=== PATIENT | female | born 1970 | race Caucasian/White ===

== ENCOUNTER 2020-11-26 15:41 | Observation (INO) | payer MEDICAID, SELFPAY ==
--- NOTE | 2020-11-26 15:42 | PC.NURSE ---
notified specialty clinic staff that pt is here that is supposed to see.
--- NOTE | 2020-11-26 15:52 | PC.NURSE ---
DR BARROSO HERE TO SEE PT
--- NOTE | 2020-11-26 16:04 | PC.NURSE ---
Addendum entered by Kristy Camarena RN 11/26/20 20:33: Dr. Wood stated he would see pt in the hospital on , when he is back in clinic Original Note: Dr. Wood gave orders to this RN, communication order placed. MD ordered: Admit pt (MD Hensley), Clindamycin 300mg IV q6, C&S Cx to nasal cavity wound, Peroxide to base of nares QID and Bacitracin ointment applied QID.
[2020-11-26 16:13] VITALS: BP 130/74; PULSE 105; RESP 16; TEMP 36.6; O2SAT 100; BMI 40.0
[2020-11-26 17:53] LABS: Adenovirus,PCR Not Detected (NotDetected); Bordetella Pertussis Not Detected (NotDetected); Chlamydophila Pneumoniae, PCR Not Detected (NotDetected); Coronavirus 19, PCR Not Detected (NotDetected); Coronavirus 229E Not Detected (NotDetected); Coronavirus NL63 Not Detected (NotDetected); Coronavirus OC43 Not Detected (NotDetected); Coronovirus HKU1,PCR Not Detected (NotDetected); Human Metapneumovirus Not Detected (NotDetected); Influenza A, PCR Not Detected (NotDetected); Influenza AH1, 2009 Not Detected (NotDetected); Influenza AH1, PCR Not Detected (NotDetected); Influenza AH3,PCR Not Detected (NotDetected); Influenza B, PCR Not Detected (NotDetected); Mycoplasma Pneumoniae, PCR Not Detected (NotDetected); Parainfluenza 1, PCR Not Detected (NotDetected); Parainfluenza 2, PCR Not Detected (NotDetected); Parainfluenza 3, PCR Not Detected (NotDetected); Parainfluenza 4, PCR Not Detected (NotDetected); Respiratory Syncytial Virus Not Detected (NotDetected); Rhinovirus/Enterovirus Not Detected (NotDetected)
--- NOTE | 2020-11-26 19:08 | PC.NURSE ---
DR. Hensley called wanting to know what Dr. Wood's poc was for pt, I stated this information to Dr. Hensley, who states is agreeable to admit pt to his service with Dr. Hill is ready to admit pt, he does not need to call him. notified ER MD hill of the above.
--- NOTE | 2020-11-26 19:36 | HMH.EDGENADL ---
ED Disposition Clinical Impression: Facial abscess Disposition: Admitted as Observation Condition on Discharge: Fair Referrals: Dianne Banuelos [Primary Care Provider] - - Critical Care Critical Care Time: No Attestation: On 11/26/20, the high probability of a clinically significant, sudden or life threatening deterioration of the following system(s) required my full and direct attention, intervention and personal management. The time I documented below is in addition to time spent performing reported procedures but includes the following listed in this critical care notation. Medical Decision Making - Bran Inquiry Pt receiving controlled substance: Yes Bran was queried for this patient: Yes Risks and benefits of using a controlled substance: were discussed with pt by me Vital Signs: 11/26/20 16:13 Temperature 97.9 F Temperature Source Tympanic Pulse Rate [Right] 105 H Respiratory Rate 16 Blood Pressure [Right Arm] 130/74 Blood Pressure Mean [Right Arm] 92 Blood Pressure Source [Right Arm] Automatic Cuff Blood Pressure Position [Right Arm] Sitting 02 Sat by Pulse Oximetry 100 Oxygen Delivery Method Room Air - Lab Data Lab Results 11/26/20 16:03: Chlamy pneumoniae PCR Not detected, Adenovirus (PCR) Not detected, B. pertussis DNA (PCR) Not detected, Coronavirus OC43 (PCR) Not detected, Coronavirus HKU1 (PCR) Not detected, Coronavirus 229E (PCR) Not detected, SARS-CoV-2 (PCR) Not detected, Coronavirus NL63 (PCR) Not detected, Human Metapneumovir PCR Not detected, Influenza A (H1) PCR Not detected, Influ A (H1N1/09) PCR Not detected, Influenza A (H3) PCR Not detected, Influenza Type A (PCR) Not detected, Influenza Type B (PCR) Not detected, M. pneumoniae (PCR) Not detected, Parainfluenza 1 (PCR) Not detected, Parainfluenza 2 (PCR) Not detected, Parainfluenza 3 (PCR) Not detected, Parainfluenza 4 (PCR) Not detected, RSV (PCR) Not detected, Entero/Rhino (PCR) Not detected Orders (Tests/Meds): ED MEDICATIONS Discontinued Medications Generic Name Dose Route Start Last Admin Trade Name Freq PRN Reason Stop Dose Admin Clindamycin Phosphate 300 mg/ 102 mls @ 100 mls/hr 11/26/20 18:00 11/26/20 18:01 Sodium Chloride IV 11/26/20 19:02 100 mls/hr ONCE ONE Administration Protocol ORDERS Category Date Time Status Wound Culture and Gram Stain Stat Micro 11/26/20 16:05 Results General Adult HPI - General Chief complaint: Skin/Abscess/Foreign Body Stated complaint: infection nose.Lip Time Seen by Provider: 11/26/20 19:37 Mode of Arrival: Ambulatory Limitations: No Limitations Description of Symptoms (Recalled from ER Triage Doc. by RN): pt was sent here from [facility]. [facility] accepted her as an admission and frankie came down to see her bedside. pt woke up about six days ago and had a small red pimple under her left nostril. in the past few days it has continued to swell and become painful. pt said it burst open today and was draining. her whol upper lip is swollen into her left nostril. there is dried blood covering where the skin had opened up. the tissue is red warm and swollen. - History of Present Illness HPI narrative: He states that on , 5 days ago, she woke up with a pimple on her left upper lip just below her nose. She popped it and cleaned it with alcohol. 2 days later when she woke up her whole lip had swollen up and was painful. She went by ambulance to [facility] last night at 2 AM. She says they told her it was a staph infection and started her on vancomycin. She says they were going to admit her but they did not have an available bed. Apparently a call was placed here to Dr. Hensley and he accepted her as a transfer but wanted her to come to the emergency department and for her to see Dr. Wood in the emergency department. Dr. Wood is seen her prior to my evaluation. He has requested intravenous clindamycin and wound care and
[2020-11-26 20:00] LABS: Basophils % 0.1 % (0.1-2.0); Chloride 102 mmol/L (98-107); Eosinophils % 0.1 % (0.1-12.0); Hematocrit 45.2 % (37.0-47.0); Hemoglobin 14.8 g/dL (12.2-16.2); Lymphocytes # 1.1 K/mm3 (0.7-4.5); Lymphocytes % 7.3 % (10-50); Mean Corpuscular HGB Conc 32.7 g/dL (31.8-35.4); Mean Corpuscular Hemoglobin 30.7 pg (27.0-31.2); Mean Platelet Volume 8.2 fl (7.4-10.4); Monocytes # 0.2 K/mm3 (0.1-1.0); Monocytes % 1.2 % (1.7-9.3); Neutrophils # 13.9 K/mm3 (1.8-7.8); Neutrophils % 91.3 % (37.0-80.0); Platelet Count 588 K/mm3 (142-424); Red Blood Count 4.81 M/mm3 (4.20-5.40); Red Cell Distribution Width 13.3 % (11.5-17.5); White Blood Count 15.3 K/mm3 (4.8-10.8)
[2020-11-26 20:01] LABS: Potassium 3.6 mmoL/L (3.5-5.1); Sodium 140 mmol/L (136-145)
[2020-11-26 20:03] LABS: Blood Urea Nitrogen 12 mg/dl (7-17); Creatinine Clearance Estimated 152 mL/min (50-200); Estimated Glomerular Filt Rate 88 ml/min (>60); GFR (African American) 106 ML/MIN (>60)
[2020-11-26 20:04] LABS: Alanine Aminotransferase 33 U/L (12-78); Albumin Level 4.4 g/dl (3.5-5.0); Albumin/Globulin Ratio 1.3 (1.1-1.8); Alkaline Phosphatase 126 U/L (38-126); Anion Gap 15.6 mEq/L (5-15); Aspartate Amino Transferase 36 U/L (14-36); Bilirubin,Total 0.7 mg/dl (0.2-1.3); Calcium 10.3 mg/dl (8.4-10.2); Carbon Dioxide 26 mmol/L (22.0-30.0); Globulin 3.5 g/dL (1.3-3.2); Glucose 221 mg/dl (74-100); Total Protein,Serum 7.9 g/dl (6.3-8.2)
[2020-11-26 20:05] LABS: Lactic Acid 3.5 mmol/L (0.7-2.1)
[2020-11-26 20:06] LABS: MANUAL DIFFERENTIAL MANUAL DIFFERENTIAL (MANUAL DIFF)
--- NOTE | 2020-11-26 20:08 | PC.NURSE ---
s/w heavenly ivan rn for bed assignment
[2020-11-26 20:30] LABS: Lymphocytes % 6 % (10-50); Monocytes % 2 % (2-9); Neutrophils % 92 % (42-76); Platelet Estimate Slight Increase; RBC Morphology Normal; Total Cells Counted 100
[2020-11-26 20:53] VITALS: BP 118/72; PULSE 83; RESP 16; TEMP 36.6; O2SAT 97; BMI 43.0
[2020-11-26 20:53] LABS: Reflex Lactic Add Lactic Reflex
--- NOTE | 2020-11-26 20:54 | PC.NURSE ---
PT ARRIVED TO FLOOR VIA W/C FROM ED W/STAFF AT 2052
[2020-11-26 20:55] VITALS: BP 135/79; PULSE 99; RESP 18; TEMP 36.8; O2SAT 97
[2020-11-26 21:22] LABS: Lactic Acid Follow Up (RFLX 1) 3.3 mmol/L (0.7-2.1)
[2020-11-26 22:55] LABS: Reflex Lactic (2 hrs) Add Lactic Reflex
[2020-11-26 23:33] LABS: Lactic Acid Follow up (RFLX 2) 2.4 mmol/L (0.7-2.1)
--- NOTE | 2020-11-27 02:49 | PC.WOUNDNOTE ---
Wound Location: Length: Width: Depth: Undermining Y/N: Tunneling cm: Granulation %: Slough/necrotic tissue %: Inflammation/swelling Y/N: Pain and/or tenderness Y/N: Exudate: Serosanguinous Sanguinous Serosanguinous Seropurulent Purulent Color: Clear [place] Cloudy/milky [place] Red Green Yellow Brown [place] Blue Consistency: Thick Thin Amount: None Scant Small Moderate Large Odor Y/N:
--- NOTE | 2020-11-27 02:49 | PC.WOUNDNOTE ---
Wound Location: under nose Length: 3.5 cm Width:2 cm Depth: Undermining Y/N: Tunneling cm: Granulation %: Slough/necrotic tissue %: Inflammation/swelling Y/N:Y Pain and/or tenderness Y/N: Y Exudate: Serosanguinous Sanguinous Serosanguinous Seropurulent Purulent Color: Clear Cynthia Cloudy/milky [place] Red Green Yellow Brown [place] Blue Consistency: Thick Thin Amount: None Y Scant Small Moderate Large Odor Y/N: N
[2020-11-27 04:00] VITALS: BP 140/65; PULSE 71; RESP 16; TEMP 36.6; O2SAT 96
--- NOTE | 2020-11-27 05:06 | PC.NURSE ---
pt is AxOx4, has rested well t/o shift, no complaints of pain in the facial abscess, does state that the place on her face itches, no complaints of chest pain or SOA, remains on room air, some expiratory wheezing noted on auscultation of lungs, O2 sats 97-100%
--- NOTE | 2020-11-27 07:35 | HMH.PHAVTE ---
[facility] Pharmacy VTE Monitoring - Patient Demographics Admission date: 11/27/20 Report Date: 11/27/20 Time: 07:35 Allergies/Adverse Reactions: Patient Allergies No Known Allergies Allergy (Verified 11/26/20 16:25) Height: 1.57 m Weight: 106.594 kg Patient Problems: Current Active Problems Facial abscess (Acute) - VTE Risk Labs: VTE Related Lab Results Hgb 14.8 g/dL (12.2-16.2) 11/26/20 15:59 Hct 45.2 % (37.0-47.0) 11/26/20 15:59 Plt Count 588 K/mm3 (142-424) H 11/26/20 15:59 BUN 12 mg/dl (7-17) 11/26/20 15:59 Creatinine 0.70 mg/dl (0.52-1.04) 11/26/20 15:59 Estimated Creat Clear 152 mL/min (50-200) 11/26/20 15:59 Was VTE Risk Assessment Performed: Yes VTE Score: 3 VTE Risk Level: Low Risk Clinical Trial Participant: No - Prophylaxis VTE Prophylaxis Ordered?: Yes Types of VTE Prophylaxis: TEDS Knee High Location of Applied Device: Bilateral Lower Extremeties
--- NOTE | 2020-11-27 07:48 | HMH.PHAINT ---
CLARIFIED HOME MEDICATION LIST USING LIST FROM OUTPATIENT PHARMACY
[2020-11-27 08:00] VITALS: BP 130/73; PULSE 90; RESP 20; TEMP 36.3; O2SAT 98
--- NOTE | 2020-11-27 08:20 | HMH.HP ---
*Admission Date: 11/27/20 *Chief complaint: Facial cellulitis/abscess *History of present illness: 50-year-old white female with history of tobacco use disorder, COPD, hypertension and obesity who presented to the emergency department in [place] with facial swelling and cellulitis at the left upper lip at the base of the left nares. She was diagnosed with abscess apparently based on CT scan and it was recommended that she have ENT follow her but there were no ENT services available at the [facility] either in [facility] or in [facility], and we were contacted to accept patient in transfer for IV antibiotics and to see our ENT consultation here. This was done and she was admitted through the emergency department. [facility] History I have reviewed the patient's past medical history: Yes Medical History: Reports:: Anxiety, Chronic Obstructive Pulmonary Disease (COPD), Diabetes Mellitus Type 2, Hypertension Denies:: Diabetes Mellitus Type 1 *Have you ever received a pneumonia vaccine?: No *Have you received a flu vaccine this season?: No - *Social History Smoking Status: Current every day smoker Tobacco Type: cigarettes # Packs/Day (cigarettes): 1 Alcohol Intake: never *Occupational Status:: disabled *Travel in the last 8 weeks: None Family Hx:: No significant family history Review of Systems - Review of Systems Review of systems:: pertinent systems reviewed and negative unless documented below Low-grade fevers. No nausea, vomiting or other GI issues. No cardiopulmonary issues. No other areas of swelling or abscess formation. Meds Home Medications Medication Instructions Recorded Confirmed Type Amlodipine Besylate 10 mg PO DAILY 11/26/20 11/26/20 History Baclofen [Lioresal 10mg tablet] 10 mg PO DAILY 11/26/20 11/26/20 History Duloxetine HCl [Cymbalta 30mg 30 mg PO DAILY 11/26/20 11/26/20 History capsule] Fluticasone Propionate [Flonase 1 spr NS DAILY 11/26/20 11/26/20 History 50mcg nasal spray 16gm] Oxybutynin Chloride 5 mg PO BID 11/26/20 11/27/20 History Pantoprazole Sodium 40 mg PO DAILY 11/26/20 11/26/20 History hydrOXYzine HCL [Hydroxyzine HCl] 25 mg PO BIDP PRN 11/26/20 11/27/20 History Losartan/Hydrochlorothiazide 1 tab PO DAILY 11/27/20 11/27/20 History [Losartan-Hctz 100-25 mg Tab] PARoxetine HCL [Paxil 20mg Tablet] 20 mg PO DAILY 11/27/20 11/27/20 History Allergies Allergy/AdvReac Type Severity Reaction Status Date / Time No Known Allergies Allergy Verified 11/26/20 16:25 Exam Vital signs and Labs for Last 24 Hours: Temp Pulse Resp BP Pulse Ox 97.4 F L 90 20 130/73 98 11/27/20 08:00 11/27/20 08:00 11/27/20 08:00 11/27/20 08:00 11/27/20 08:00 Laboratory Results - last 24 hr 11/26/20 15:59: WBC 15.3 H, RBC 4.81, Hgb 14.8, Hct 45.2, MCV 94.0, MCH 30.7, MCHC 32.7, RDW 13.3, Plt Count 588 H, MPV 8.2, Neut % (Auto) 91.3 H, Lymph % (Auto) 7.3 L, [place] % (Auto) 1.2 L, Eos % (Auto) 0.1, Baso % (Auto) 0.1, Neut # (Auto) 13.9 H, Lymph # (Auto) 1.1, [place] # (Auto) 0.2, Eos # (Auto) 0.0, Baso # (Auto) 0.0, Total Counted 100, Neutrophils % (Manual) 92 H, Lymphocytes % (Manual) 6 L, Monocytes % (Manual) 2, Platelet Estimate Slight increase, RBC Morphology Normal 11/26/20 15:59: Sodium 140, Potassium 3.6, Chloride 102, Carbon Dioxide 26, Anion Gap 15.6 H, BUN 12, Creatinine 0.70, Estimated Creat Clear 152, Estimated GFR 88, Est GFR ( Amer) 106, Glucose 221 H, Calcium 10.3 H, Total Bilirubin 0.7, AST 36, ALT 33, Alkaline Phosphatase 126, Total Protein 7.9, Albumin 4.4, Globulin 3.5 H, Albumin/Globulin Ratio 1.3 11/26/20 15:59: Lactate 3.5 H 11/26/20 16:03: Chlamy pneumoniae PCR Not detected, Adenovirus (PCR) Not detected, B. pertussis DNA (PCR) Not detected, Coronavirus OC43 (PCR) Not detected, Coronavirus HKU1 (PCR) Not detected, Coronavirus 229E (PCR) Not detected, SARS-CoV-2 (PCR) Not detected, Coronavirus NL63 (PCR) Not detected, Human Metapneumovir PCR Not de
--- NOTE | 2020-11-27 12:50 | PC.NURSE ---
Pt is alert and oriented X 4. Lungs are clear, bowel sounds active x4. Yellowish/bloody crusting to left upper lip, into left nare. Washed with peroxide q6hrs and bacitracin applied q4hrs. Pt has tolerated treatments well. She rested in bed until lunch time then she was up the chair for a while. She ambulates in the room independently. She requested pain meds once thus far for facial pain. She was resting with her eyes closed on reassessment. Nicotine patch applied to left deltoid. No complaints verbalized (other than facial pain). Will continue to monitor.
[2020-11-27 14:01] VITALS: BMI 43.4
[2020-11-27 15:41] VITALS: BP 98/54; PULSE 75; RESP 18; TEMP 36.9; O2SAT 98
[2020-11-27 20:00] VITALS: BP 110/55; PULSE 76; RESP 16; TEMP 37; O2SAT 99
[2020-11-28 03:49] VITALS: BP 123/67; PULSE 69; RESP 16; TEMP 36.5; O2SAT 97
--- NOTE | 2020-11-28 04:20 | PC.NURSE ---
Pt admitted for excoriations between nares and mouth, documented infection present. Pt currently on ABx and has not c/o pain this shift. Plan for surgical intervention for infection today. Will continue to monitor for any acute changes.
[2020-11-28 05:00] VITALS: BMI 43.7
[2020-11-28 06:45] LABS: Basophils % 0.3 % (0.1-2.0); Eosinophils % 0.3 % (0.1-12.0); Hematocrit 38.8 % (37.0-47.0); Lymphocytes # 4.5 K/mm3 (0.7-4.5); Lymphocytes % 39.8 % (10-50); Mean Corpuscular HGB Conc 33.6 g/dL (31.8-35.4); Mean Corpuscular Hemoglobin 30.9 pg (27.0-31.2); Mean Platelet Volume 7.1 fl (7.4-10.4); Monocytes # 0.5 K/mm3 (0.1-1.0); Neutrophils # 6.2 K/mm3 (1.8-7.8); Neutrophils % 55.6 % (37.0-80.0); Platelet Count 541 K/mm3 (142-424); Red Blood Count 4.22 M/mm3 (4.20-5.40); Red Cell Distribution Width 13.5 % (11.5-17.5); White Blood Count 11.2 K/mm3 (4.8-10.8)
[2020-11-28 06:46] LABS: Alanine Aminotransferase 13 U/L (12-78); Albumin Level 3.3 g/dl (3.5-5.0); Albumin/Globulin Ratio 1.1 (1.1-1.8); Alkaline Phosphatase 87 U/L (38-126); Anion Gap 8.7 mEq/L (5-15); Aspartate Amino Transferase 16 U/L (14-36); Bilirubin,Total 0.3 mg/dl (0.2-1.3); Blood Urea Nitrogen 21 mg/dl (7-17); Calcium 9.4 mg/dl (8.4-10.2); Carbon Dioxide 29 mmol/L (22.0-30.0); Chloride 104 mmol/L (98-107); Creatinine Clearance Estimated 71 mL/min (50-200); Estimated Glomerular Filt Rate 88 ml/min (>60); GFR (African American) 106 ML/MIN (>60); Globulin 2.9 g/dL (1.3-3.2); Glucose 105 mg/dl (74-100); Potassium 3.7 mmoL/L (3.5-5.1); Sodium 138 mmol/L (136-145); Total Protein,Serum 6.2 g/dl (6.3-8.2)
--- NOTE | 2020-11-28 07:54 | CT_ITS ---
PROCEDURE: CT FACIAL BONES WO CON CLINICAL HISTORY: cellulitis nasal cellulitis, soft tissue swelling COMPARISON: No exams were available for comparison TECHNIQUE: Axial images obtained with sagittal and coronal reformats. All CT scans at the facility use one or more dose reduction, viz: automated exposure control, ma/kV adjustment per patient size (including targeted exams where dose is matched to indication, i.e. head), or iterative reconstruction technique. FINDINGS: There is mild leftward nasal septal deviation. There is mild soft tissue swelling along the inferior aspect of the nares on the left. This could be inflammatory or neoplastic. This is approximately 6 by 9 mm. No paranasal sinus mucosal thickening or air-fluid levels. The TMJs show minimal osteoarthritic change. The orbits have an unremarkable appearance. There is minimal calcification involving the central retina at the region of the optic discs on both sides. Scattered small nodes are present in the neck. IMPRESSION: 1. Soft tissue thickening/nodular area along the inferior aspect of the nares on the left at 6 x 9 mm. This is nonspecific and could be inflammatory or neoplastic. 2. Mild leftward nasal septal deviation 3. Nonspecific minimal calcification noted in the region of the optic disc involving both globes Dictated by: Venkat Rondon MD 11/28/2020 10:44 Venkat Rondon MD in [place] 11/28/2020 10:44
--- NOTE | 2020-11-28 07:55 | HMH.ACPN2 ---
Internal Medicine - PN: Subj *Date: 11/28/20 *Time: 07:55 Interval history: Patient feels much better, has done very nicely with intravenous clindamycin. Nasal and facial swelling are vastly improved and she has almost no pain. Eating well, speaking well, swallowing well. Exam Vital signs and Labs for Last 24 Hours: Temp Pulse Resp BP Pulse Ox 97.7 F 69 16 123/67 97 11/28/20 03:49 11/28/20 03:49 11/28/20 03:49 11/28/20 03:49 11/28/20 03:49 Laboratory Results - last 24 hr 11/28/20 06:13: WBC 11.2 H D, RBC 4.22, Hgb 13.0, Hct 38.8, MCV 92.0, MCH 30.9, MCHC 33.6, RDW 13.5, Plt Count 541 H, MPV 7.1 L, Neut % (Auto) 55.6, Lymph % (Auto) 39.8, [place] % (Auto) 4.0, Eos % (Auto) 0.3, Baso % (Auto) 0.3, Neut # (Auto) 6.2, Lymph # (Auto) 4.5, [place] # (Auto) 0.5, Eos # (Auto) 0.0, Baso # (Auto) 0.0 11/28/20 06:13: Sodium 138, Potassium 3.7, Chloride 104, Carbon Dioxide 29, Anion Gap 8.7, BUN 21 H D, Creatinine 0.70, Estimated Creat Clear 71, Estimated GFR 88, Est GFR ( Amer) 106, Glucose 105 H, Calcium 9.4, Total Bilirubin 0.3, AST 16 D, ALT 13 D, Alkaline Phosphatase 87, Total Protein 6.2 L, Albumin 3.3 L, Globulin 2.9, Albumin/Globulin Ratio 1.1 I & O for Last 24 hours: Intake & Output 11/25/20 11/26/20 11/27/20 11/28/20 11:59 11:59 11:59 11:59 Intake Total 340 / 340 1160 / 1160 Balance 340 / 340 1160 / 1160 Weight 235 lb 237 lb 5 oz Microbiology Reports for the Last 24 Hours: Microbiology 11/26/20 16:05 Face - Abscess Gram Stain - Final 11/26/20 16:05 Face - Abscess Wound Culture - Preliminary Narrative: Patch of cellulitis/impetigo underneath the left nostril is 50% reduced. No sinus tenderness appreciated. Swelling across the nasal bridge and around the left orbit is almost resolved. Cardiopulmonary assessment unremarkable. Neurologically intact. Assessment and Plan (1) COPD (chronic obstructive pulmonary disease) Status: Acute Category: Medical Code(s): J44.9 - Chronic obstructive pulmonary disease, unspecified (2) Personal history of nicotine dependence Status: Acute Category: Medical Code(s): Z87.891 - Personal history of nicotine dependence (3) Hypertension, essential Status: Acute Category: Medical Code(s): I10 - Essential (primary) hypertension (4) Morbid obesity Status: Acute Category: Medical Code(s): E66.01 - Morbid (severe) obesity due to excess calories (5) Facial abscess Status: Acute Category: Medical Code(s): L02.01 - Cutaneous abscess of face - Assessment and plan all Dx Assessment and Plan for all problems:: Facial cellulitis vastly improved clinically. Report of CT scan from outside hospital did not show any discrete areas of abscess. I plan to do another CT scan today. ENT evaluation. I do not think there is any role at this point clinically for operative intervention and patient could probably be discharged this afternoon.
[2020-11-28 08:00] VITALS: BP 123/63; PULSE 70; RESP 18; TEMP 36.8; O2SAT 97
--- NOTE | 2020-11-28 10:48 | PC.NURSE ---
DR BARROSO @ BEDSIDE @ THIS TIME
--- NOTE | 2020-11-28 10:55 | HMH.GSCON ---
*Admission Date: 11/27/20 *Reason for consult:: facial abscess *History of present illness: weeks [facility] History I have reviewed the patient's past medical history: Yes Medical History: Reports:: Anxiety, Chronic Obstructive Pulmonary Disease (COPD), Diabetes Mellitus Type 2, Hypertension Denies:: Diabetes Mellitus Type 1 *Have you ever received a pneumonia vaccine?: No *Have you received a flu vaccine this season?: No - *Social History Smoking Status: Current every day smoker Tobacco Type: cigarettes # Packs/Day (cigarettes): 1 Alcohol Intake: never *Occupational Status:: disabled *Travel in the last 8 weeks: None - Psychiatric History Pschychiatric History:: Reports:: Anxiety Family Hx:: No significant family history Meds Home Medications Medication Instructions Recorded Confirmed Type Amlodipine Besylate 10 mg PO DAILY 11/26/20 11/26/20 History Baclofen [Lioresal 10mg tablet] 10 mg PO DAILY 11/26/20 11/26/20 History Duloxetine HCl [Cymbalta 30mg 30 mg PO DAILY 11/26/20 11/26/20 History capsule] Fluticasone Propionate [Flonase 1 spr NS DAILY 11/26/20 11/26/20 History 50mcg nasal spray 16gm] Oxybutynin Chloride 5 mg PO BID 11/26/20 11/27/20 History Pantoprazole Sodium 40 mg PO DAILY 11/26/20 11/26/20 History hydrOXYzine HCL [Hydroxyzine HCl] 25 mg PO BIDP PRN 11/26/20 11/27/20 History Losartan/Hydrochlorothiazide 1 tab PO DAILY 11/27/20 11/27/20 History [Losartan-Hctz 100-25 mg Tab] PARoxetine HCL [Paxil 20mg Tablet] 20 mg PO DAILY 11/27/20 11/27/20 History Allergies Allergy/AdvReac Type Severity Reaction Status Date / Time No Known Allergies Allergy Verified 11/26/20 16:25 Exam Vital signs and Labs for Last 24 Hours: Temp Pulse Resp BP Pulse Ox 98.2 F 70 18 123/63 97 11/28/20 08:00 11/28/20 08:00 11/28/20 08:00 11/28/20 08:00 11/28/20 08:00 Laboratory Results - last 24 hr 11/28/20 06:13: WBC 11.2 H D, RBC 4.22, Hgb 13.0, Hct 38.8, MCV 92.0, MCH 30.9, MCHC 33.6, RDW 13.5, Plt Count 541 H, MPV 7.1 L, Neut % (Auto) 55.6, Lymph % (Auto) 39.8, [place] % (Auto) 4.0, Eos % (Auto) 0.3, Baso % (Auto) 0.3, Neut # (Auto) 6.2, Lymph # (Auto) 4.5, [place] # (Auto) 0.5, Eos # (Auto) 0.0, Baso # (Auto) 0.0 11/28/20 06:13: Sodium 138, Potassium 3.7, Chloride 104, Carbon Dioxide 29, Anion Gap 8.7, BUN 21 H D, Creatinine 0.70, Estimated Creat Clear 71, Estimated GFR 88, Est GFR ( Amer) 106, Glucose 105 H, Calcium 9.4, Total Bilirubin 0.3, AST 16 D, ALT 13 D, Alkaline Phosphatase 87, Total Protein 6.2 L, Albumin 3.3 L, Globulin 2.9, Albumin/Globulin Ratio 1.1 I & O for Last 24 hours: Intake & Output 11/25/20 11/26/20 11/27/20 11/28/20 23:59 23:59 23:59 23:59 Intake Total 1300 / 1300 200 / 200 Balance 1300 / 1300 200 / 200 Weight 235 lb 235 lb 14.314 oz 237 lb 5 oz Microbiology Reports for the Last 24 Hours: Microbiology 11/26/20 16:05 Face - Abscess Gram Stain - Final 11/26/20 16:05 Face - Abscess Wound Culture - Preliminary Gram Positive Cocci - *Routine HEENT Exam Comments: This patient was doing much better when examined on 11/28/2020, she was initially examined in the ER on 11/26/2020 and had a left nasal ala mass which was oozing and inflamed. I advised that she be started on clindamycin antibiotics intravenously as well as compresses to the left nostril area with peroxide 4 times a day and application of Bacitracin ointment after the compresses. When examined on 11/28/2020 she was much better and the mass had decreased in size and she still had a small left naris upper lip mass. She did have a CT scan of the sinuses done which did not show any significant disease but it did show the small soft tissue swelling in that area on the left nares upper lip. She is fit to go home and I would recommend that she stay on this Clindamycin orally for at least another 5 days and apply bacitracin ointment to the lesional area on the upper lip [id number]
--- NOTE | 2020-11-28 12:11 | [facility].DCSUM ---
General - General Admission date:: 11/26/20 Discharge date: 11/28/20 HPI HPI: 50-year-old white female with history of tobacco use disorder, COPD, hypertension and obesity who presented to the emergency department in [place] with facial swelling and cellulitis at the left upper lip at the base of the left nares. She was diagnosed with abscess apparently based on CT scan and it was recommended that she have ENT follow her but there were no ENT services available at the [facility] either in [facility] or in [facility], and we were contacted to accept patient in transfer for IV antibiotics and to see our ENT consultation here. This was done and she was admitted through the emergency department. Hospital Course Hospital Course: Patient was admitted, CT scanning was repeated showing no evidence of abscess formation. ENT was consulted. They followed up today, recommended continuing antibiotics transitioning to p.o. Patient improved very nicely, exam improved, she will be discharged with p.o. antibiotics and follow-up with ENT surgery. Objective Vital signs: Temp Pulse Resp BP Pulse Ox 98.2 F 70 18 123/63 97 11/28/20 08:00 11/28/20 08:00 11/28/20 08:00 11/28/20 08:00 11/28/20 08:00 no acute distress - *Routine HEENT Exam Head: Present: normocephalic Eye: Present: EOMI, PERRL ENT: Present: mucous membranes moist Comments: Minimal swelling under left nostril, vastly improved, no evidence of facial abscess or crepitus. - *Routine Neck Exam Present: supple - *Routine Respiratory Exam Present: CTA bilaterally - *Routine Cardiovascular Exam Present: RRR - *Routine Abdominal Exam Present: soft, normoactive bowel sounds. Absent: tenderness - *Routine Extremities Exam Absent: cyanosis, clubbing, edema - *Routine Skin Exam Present: warm. Absent: rash - Detailed Eye Exam Eyelids: Bilateral normal inspection Results Labs on day of discharge: Labs from last 24 hours 11/28/20 11/28/20 06:13 06:13 WBC 11.2 H D RBC 4.22 Hgb 13.0 Hct 38.8 MCV 92.0 MCH 30.9 MCHC 33.6 RDW 13.5 Plt Count 541 H MPV 7.1 L Neut % (Auto) 55.6 Lymph % (Auto) 39.8 [place] % (Auto) 4.0 Eos % (Auto) 0.3 Baso % (Auto) 0.3 Neut # (Auto) 6.2 Lymph # (Auto) 4.5 [place] # (Auto) 0.5 Eos # (Auto) 0.0 Baso # (Auto) 0.0 Sodium 138 Potassium 3.7 Chloride 104 Carbon Dioxide 29 Anion Gap 8.7 BUN 21 H D Creatinine 0.70 Estimated Creat Clear 71 Estimated GFR 88 Est GFR ( Amer) 106 Glucose 105 H Calcium 9.4 Total Bilirubin 0.3 AST 16 D ALT 13 D Alkaline Phosphatase 87 Total Protein 6.2 L Albumin 3.3 L Globulin 2.9 Albumin/Globulin Ratio 1.1 Preliminary micro results at discharge 11/26/20 16:05 Wound Culture - Preliminary Face - Abscess Gram Positive Cocci DS: Diagnosis - Discharge Diagnosis (1) COPD (chronic obstructive pulmonary disease) Status: Acute (2) Personal history of nicotine dependence Status: Chronic (3) Hypertension, essential Status: Chronic (4) Morbid obesity Status: Chronic (5) Facial abscess Status: Ruled-out Discharge Plan - Patient Discharge Instructions ACTIVITY: Continue current activity DIET: continue same diet Patient Instructions: DI for Impetigo, DI for Skin Abscess - Follow up Plan Follow up with: Garry Wood MD [Staff Physician] - 1 week Disposition: Home, Self-Detention Medications: Home Medications Medication Instructions Recorded Confirmed Type Amlodipine Besylate 10 mg PO DAILY 11/26/20 11/26/20 History Baclofen [Lioresal 10mg tablet] 10 mg PO DAILY 11/26/20 11/26/20 History Duloxetine HCl [Cymbalta 30mg 30 mg PO DAILY 11/26/20 11/26/20 History capsule] Fluticasone Propionate [Flonase 1 spr NS DAILY 11/26/20 11/26/20 History 50mcg nasal spray 16gm] Oxybutynin Chloride 5 mg PO
== END 2020-11-28 12:51 | disposition home or self-care (01) ==
LOC: ER 19:58 → 2ND 20:35
PROVIDERS: Internal Medicine Adolescent Medicine; Admitting Provider Internal Medicine Adolescent Medicine; Emergency Provider Emergency Medicine; PCP Internal Medicine Addiction Medicine; Visit Provider Internal Medicine Adolescent Medicine
DX: L02.01 Cutaneous abscess of face (principal); I10 Essential (primary) hypertension; J44.9 Chronic obstructive pulmonary disease, unspecified; Z87.891 Personal history of nicotine dependence; Z79.899 Other long term (current) drug therapy
CPT/HCPCS: 70486; 80053; 83605; 85007; 85025; 87040; 87070; 87077; 87186; 87205; 87581; 87633; 87798; 96365; 99283; G0378